=== PATIENT | female | born 1960 | race Caucasian/White ===

== ENCOUNTER 2021-09-12 10:09 | Inpatient (IN) | payer BC ==
[~2021-09-12] VITALS: Ht 157.5 cm; Wt 114.5 kg
--- NOTE | 2021-09-12 10:45 | ED.ADGEN ---
Past Medical History Past Medical History: Cancer General Adult HPI: HPI: Patient is a 61-year-old female who arrives with her son to the emergency department after an abrupt change in her mental status. The patient's son reports he contacted her earlier this morning and the patient was reportedly slurring her speech. The patient was recently diagnosed with metastatic breast cancer which is most recently been found in her liver. The patient does take morphine for her pain however her last dose was late yesterday evening. Patient also reports to epigastric pain as well as nausea with 2 episodes of vomiting. Patient reports that she feels intoxicated however she has not had anything to drink. She states she feels somewhat lightheaded. Furthermore she states she can move all of her extremities and does not suffer from any motor or sensory deficits. Furthermore she is not slurring her speech at this time. She is awake, alert and neurologically intact. Review of Systems: Review of Systems: Constitutional: Reports fatigue. Denies fever or chills. [] Eyes: Denies change in visual acuity. [] HENT: Denies nasal congestion or sore throat. [] Respiratory: Reports shortness of air. Denies cough or shortness of breath. [] Cardiovascular: Denies chest pain or edema. [] GI: Reports abdominal pain with nausea and vomiting. Bloody stools or diarrhea. [] : Denies dysuria. [] Musculoskeletal: Denies back pain or joint pain. [] Integument: Denies rash. [] Neurologic: Reports slurred speech and change in mental status. Denies headache, focal weakness or sensory changes. [] Endocrine: Denies polyuria or polydipsia. [] Lymphatic: Denies swollen glands. [] Psychiatric: Denies depression or anxiety. [] Current Medications: Current Medications Medications (Trade) Dose Ordered Sig/Kassidy Start Time Stop Time Status Last Admin Dose Admin Fentanyl Citrate (Fentanyl 2ml Vial) 25 mcg PRN Q3HRS PRN 09/12/21 13:30 UNV Lactulose (Lactulose) 20 gm BID 09/12/21 13:30 UNV Morphine Sulfate (Morphine Sulfate) 4 mg PRN Q2HR PRN 09/12/21 13:15 09/12/21 13:19 DC Ondansetron HCl (Zofran) 4 mg PRN Q4HRS PRN 09/12/21 13:30 UNV Allergies: Allergies: Allergies Coded Allergies Type Severity Reaction Last Updated Verified Penicillins Allergy Intermediate 09/12/21 Yes Physical Exam: PE: Constitutional: Fatigued. Well developed, well nourished, no acute distress, non-toxic appearance. [] HENT: Normocephalic, atraumatic, bilateral external ears normal, oropharynx moist, no oral exudates, nose normal. [] Eyes: PERRLA, EOMI, conjunctiva normal, no discharge. [] Neck: Normal range of motion, no tenderness, supple, no stridor. [] Cardiovascular:Heart rate regular rhythm, no murmur [] Lungs & Thorax: Bilateral breath sounds clear to auscultation [] Abdomen: Bowel sounds normal, soft, no tenderness, no masses, no pulsatile ma sses. [] Skin: Warm, dry, no erythema, no rash. [] Back: No tenderness, no CVA tenderness. [] Extremities: No tenderness, no cyanosis, no clubbing, ROM intact, no edema. [] Neurologic: Alert and oriented X 3, normal motor function, normal sensory function, no focal deficits noted. [] Psychologic: Affect normal, judgement normal, mood normal. [] Current Patient Data: Labs: Laboratory Tests Test 09/12/21 12:02 White Blood Count 10.1 x10^3/uL (4.0-11.0) Red Blood Count 5.53 x10^6/uL (3.50-5.40) H Hemoglobin 17.3 g/dL (12.0-15.5) H Hematocrit 52.0 % (36.0-47.0) H Mean Corpuscular Volume 94 fL (79-100) Mean Corpuscular Hemoglobin 31 pg (25-35) Mean Corpuscular Hemoglobin Concent 33 g/dL (31-37) Red Cell Distribution Width 16.6 % (11.5-14.5) H Platelet Count 233 x10^3/uL (140-400) Neutrophils (%) (Auto) 81 % (31-73) H Lymphocytes (%) (Auto) 9 % (24-48) L Monocytes (%) (Auto) 8 % (0-9) Eosinophils (%) (Auto) 1 % (0-3) Basophils (%) (Auto) 1 % (0-3) Neutrophils # (Auto) 8.2 x10^3/uL (1.8-7.7) H Lymphocytes # (Auto) 1.0 x10^3/uL (1.0-4.8) Monocytes # (Auto) 0.8 x10^3/uL (0.0-1.1) Eosinophils # (Auto) 0.1 x10^3/uL (0.0-0.7) Basophils # (Auto) 0.1 x10^3/uL (0.0-0.2) Segmented Neutrophils % 81 % (35-66) H Band Neutrophils % 6 % (0-9) Lymphocytes % 7 % (24-48) L Monocytes % 6 % (0-10) Nucleated Red Blood Cells 1 Toxic Vacuolation Slight Platelet Estimate Adequate (ADEQUATE) Large Platelets Occ Giant Platelets Occ Prothrombin Time 15.6 SEC (11.7-14.0) H Prothrombin Time INR 1.3 (0.8-1.1) H Activated Partial Thromboplast Time 42 SEC (24-38) H Sodium Level 136 mmol/L (136-145) Potassium Level 3.8 mmol/L (3.5-5.1) Chloride Level 95 mmol/L (98-107) L Carbon Dioxide Level 24 mmol/L (21-32) Anion Gap 17 (6-14) H Blood Urea Nitrogen 39 mg/dL (7-20) H Creatinine 1.6 mg/dL (0.6-1.0) H Estimated GFR (Cockcroft-Gault) 32.8 BUN/Creatinine Ratio 24 (6-20) H Glucose Level 83 mg/dL (70-99) Calcium Level 10.8 mg/dL (8.5-10.1) H Total Bilirubin 14.4 mg/dL (0.2-1.0) H Aspartate Amino Transferase (AST) 2054 U/L (15-37) H Alanine Aminotransferase (ALT) 657 U/L (14-59) H Alkaline Phosphatase 1703 U/L (46-116) H Ammonia 76 mcmol/L (11-34) H Troponin I High Sensitivity 16 ng/L (4-50) Total Protein 5.9 g/dL (6.4-8.2) L Albumin 2.7 g/dL (3.4-5.0) L Albumin/Globulin Ratio 0.8 (1.0-1.7) L Laboratory Tests 09/12/21 12:02 Laboratory Tests 09/12/21 12:02 Vital Signs: Vital Signs Date Time Temp Pulse Resp B/P (MAP) Pulse Ox O2 Delivery O2 Flow Rate FiO2 09/12/21 12:12 18 92 09/12/21 10:16 96.2 63 134/89 (104) 96.2 EKG: EKG: EKG was obtained at 10:55 AM and revealed a normal sinus rhythm with a ventricular rate of 60 bpm. There is left axis deviation present. There are no acute ST/T wave changes to denote ischemia. There is no STEMI present. Heart Score: C/O Chest Pain: No HEART Score for Chest Pain: HEART Score for Chest Pain Response (Comments) Value History Slighlty/Non-Suspicious 0 Age >45 - < 65 1 Risk Factors 1 or 2 Risk Factors 1 Troponin < Normal Limit 0 Total 2 Risk Factors: Risk Factors: DM, Current or recent (<one month) smoker, HTN, HLP, family history of CAD, obesity. Risk Scores: Score 0 - 3: 2.5% MACE over next 6 weeks - Discharge Home Score 4 - 6: 20.3% MACE over next 6 weeks - Admit for Clinical Observation Score 7 - 10: 72.7% MACE over next 6 weeks - Early Invasive Strategies Radiology/Procedures: Radiology/Procedures: [[facility] [address] [place] [address] IMAGING REPORT Signed PATIENT: JOSE GUADALUPE BONILLA ACCOUNT: [id number] : 1960 LOCATION: ER AGE: 61 SEX: F EXAM STATUS: PRE ER ORD. PHYSICIAN: MARLA HOBBS DO REASON: Shortness of air PROCEDURE: PORTABLE CHEST 1V XR CHEST 1V History: Reason: Shortness of air / Spl. Instructions: / History: Comparison: None. Findings: Mild bibasilar linear atelectasis. No consolidation or pleural effusion. Normal heart size. No pneumothorax. Calcified right midlung pulmonary nodule, likely prior granulomatous disease. Postop changes bilateral axilla and cervical spine. Impression: 1. Mild bibasilar linear atelectasis. Electronically signed by: Scar Weller DO (09/12/2021 11:03 AM) [id number] DICTATED and SIGNED BY: SCAR WELLER DO DATE: 09/12/21 1102 [facility] [address] [place] [address] IMAGING REPORT Signed PATIENT: JOSE GUADALUPE BONILLA ACCOUNT: [id number] : 1960 LOCATION: ER AGE: 61 SEX: F EXAM STATUS: PRE ER ORD. PHYSICIAN: MARLA HOBBS DO REASON: Altered mental status, slurred speech PROCEDURE: CT HEAD WO CONTRAST CT HEAD/BRAIN WO History: Reason: Altered mental status, slurred speech / Spl. Instructions: / History: Comparison: None. Technique: Noncontrast CT imaging was performed of the head. Exposure: One or more of the following individualized dose reduction techniques were utilized for this examination: 1. Automated exposure control 2. Adjustment of the mA and/or kV according to patient size 3. Use of iterative reconstruction technique. Findings: No intracranial hemorrhage. No mass effect. No hydrocephalus. Mild foci of decreased attenuation within the hemispheric white matter, most o ften due to chronic microvascular ischemia. Imaged orbits are unremarkable. Imaged paranasal sinuses and mastoid air cells are clear. No acute calvarial fracture. Impression: 1. No acute intracranial abnormality. Electronically signed by: Scar Weller DO (09/12/2021 11:47 AM) [id number] DICTATED and SIGNED BY: SCAR WELLER DO DATE: 09/12/21 1133 ] Course & Med Decision Making: Course & Med Decision Making Pertinent Labs and Imaging studies reviewed. (See chart for details) [] Dragon Disclaimer: Dragon Disclaimer: This electronic medical record was generated, in whole or in part, using a voice recognition dictation system. Departure Departure Impression: Primary Impression: Hepatic encephalopathy Additional Impressions: Transaminitis Polycythemia Renal insufficiency Breast cancer Disposition: ADMITTED INPATIENT Admitting Physician: EFREN Condition: STABLE Problem Qualifiers MARLA HOBBS DO September 12, 2021 10:45
--- NOTE | 2021-09-12 11:06 | RAD ---
XR CHEST 1V History: Reason: Shortness of air / Spl. Instructions: / History: Comparison: None. Findings: Mild bibasilar linear atelectasis. No consolidation or pleural effusion. Normal heart size. No pneumo thorax. Calcified right midlung pulmonary nodule, likely prior granulomatous disease. Postop changes bilateral axilla and cervical spine. Impression: 1. Mild bibasilar linear atelectasis. Electronically signed by: Scar Riggs DO (09/12/2021 11:03 AM) [id number]
[2021-09-12] MEDS ORDERED: ONDANSETRON PF 4 MG/2 ML VIAL. IVP ONE (11:15)
[2021-09-12] MEDS ORDERED: MORPHINE SULFATE 4 MG/ML INJ. IVP ONE (11:15)
--- NOTE | 2021-09-12 11:49 | RAD ---
CT HEAD/BRAIN WO History: Reason: Altered mental status, slurred speech / Spl. Instructions: / History: Comparison: None. Technique: Noncontrast CT imaging was performed of the head. Exposure: One or more of the following individualized dose reduction techniques were utilized for thi s examination: 1. Automated exposure control 2. Adjustment of the mA and/or kV according to patient size 3. Use of iterative reconstruction technique. Findings: No intracranial hemorrhage. No mass effect. No hydrocephalus. Mild foci of decreased attenuation within the hemispheric white matter, most often due to chronic afua rovascular ischemia. Imaged orbits are unremarkable. Imaged paranasal sinuses and mastoid air cells are clear. No acute ca lvarial fracture. Impression: 1. No acute intracranial abnormality. Electronically signed by: Scar Riggs DO (09/12/2021 11:47 AM) [id number]
[2021-09-12 12:16] LABS: BASO # 0.1 x10^3/uL (0.0-0.2); BASO % 1 % (0-3); EOS # 0.1 x10^3/uL (0.0-0.7); EOS % 1 % (0-3); HEMOGLOBIN 17.3 g/dL (12.0-15.5); LYMPH % 9 % (24-48); MEAN CORPUSCULAR HEMOGLOBIN 31 pg (25-35); MEAN CORPUSCULAR HGB CONC 33 g/dL (31-37); MEAN CORPUSCULAR VOLUME 94 fL (79-100); MONO # 0.8 x10^3/uL (0.0-1.1); MONO % 8 % (0-9); NEUT # 8.2 x10^3/uL (1.8-7.7); NEUT % 81 % (31-73); PLATELET COUNT 233 x10^3/uL (140-400); RED BLOOD COUNT 5.53 x10^6/uL (3.50-5.40); RED CELL DISTRIBUTION WIDTH 16.6 % (11.5-14.5); WHITE BLOOD COUNT 10.1 x10^3/uL (4.0-11.0)
[2021-09-12 12:26] LABS: PROTHROMBIN TIME PATIENT 15.6 SEC (11.7-14.0)
[2021-09-12 12:29] LABS: CALCIUM 10.8 mg/dL (8.5-10.1); CREATININE 1.6 mg/dL (0.6-1.0); GFR 32.8; POTASSIUM 3.8 mmol/L (3.5-5.1)
[2021-09-12 12:43] LABS: ALBUMIN 2.7 g/dL (3.4-5.0); ALBUMIN/GLOBULIN RATIO 0.8 (1.0-1.7); TOTAL BILIRUBIN 14.4 mg/dL (0.2-1.0); TOTAL PROTEIN 5.9 g/dL (6.4-8.2)
[2021-09-12 12:59] LABS: % BANDS 6 % (0-9); % LYMPHS 7 % (24-48); % MONOS 6 % (0-10); % SEGS 81 % (35-66); NUCLEATED RBC 1; PLT ESTIMATE ADEQUATE (ADEQUATE)
[2021-09-12 13:00] LABS: TOXIC VACUOLATION SLIGHT
[2021-09-12] MEDS ORDERED: LACTULOSE 20 GM/30 ML SOLUTION. PO PRN (13:15)
[2021-09-12] MEDS ORDERED: ONDANSETRON PF 4 MG/2 ML VIAL. IVP PRN (13:15)
[2021-09-12] MEDS ORDERED: MORPHINE SULFATE 4 MG/ML INJ. IVP PRN (13:15)
[2021-09-12 13:21] LABS: BACTERIA,URINE MODERATE /HPF (0-FEW); HYALINE CASTS, URINE FEW /HPF; WBC,URINE 20-40 /HPF (0-4)
[2021-09-12 13:22] LABS: AMORPHOUS SEDIMENT,UR PRESENT /HPF
--- NOTE | 2021-09-12 13:22 | PDOC1 ---
History and Physical Date of Admission Date of Admission DATE: 09/12/21 TIME: 13:21 Identification/Chief Complaint Chief Complaint Confusion Source Source: Caregiver, Chart review, Patient History of Present Illness History of Present Illness Ms Marcelino is a 61 yo female w/ PMhx GERD, breast cancer x2 who comes to ED accompanied by her son, Jose D, c/o worsening confusion and abdominal pain at home. She has had nausea, confusion, 10/10 abdominal pain that is diffuse. She was recently admitted admitted for 4 days at [facility] for worsening fatigue and abdominal pain, discharged on 09/03/2021 and during that hospital stay son notes she had liver biopsy was positive for metastatic breast cancer. She was discharged home with morphine and sucralfate and Colace and given referral to Dr. Hdz and Dr. Hdz for primary care. Has yet to establish with either. She has moved to [place] and still sees her PCP in [place] until recently. Her son notes left sided breast cancer back in 2011 s/p lumpectomy and radiation with right breast cancer at the end of 2019 s/p mastectomy, radiation, and 12 rounds of chemo therapy, HER2 positive per son, was on herceptin for 12 months per son through [facility], has been off any treatment for 8 months and had fol low up 1 month ago per son with Dr. Geronimo, her primary Oncologist. Labs with WBC 10.1, Hb 17.3, platelets 233, NA 136, K3.8, BUN 39, CR 1.6, glucose 83, calcium 10.8, bilirubin 14.4, AST 2054, ALT 657, alkaline phosphatase 1703, ammonia 76, high-sensitivity troponin is 16, having an 2.7, INR 1.3, PTT 42. CT head and chest radiograph with no acute findings. Past Medical History Cardiovascular: HTN Heme/Onc: Cancer (Breast) Past Surgical History Past Surgical History cholecystectomy, liver biopsy, partial hysterectomy, cervical fusion Past Surgical History: Cholecystectomy, Hysterectomy Family History Family History Reviewed Family History: No Significant Social History Smoke: No ALCOHOL: rare Drugs: None Current Problem List Problem List Problems Medical Problems: (1) Breast cancer Status: Acute (2) Hepatic encephalopathy Status: Acute (3) Polycythemia Status: Acute (4) Renal insufficiency Status: Acute (5) Transaminitis Status: Acute Current Medications Current Medications Current Medications Ondansetron HCl (Zofran) 4 mg 1X ONCE IVP Last administered on 09/12/21at 12:10; Start 09/12/21 at 11:15; Stop 09/12/21 at 11:16; Status DC Morphine Sulfate (Morphine Sulfate) 4 mg 1X ONCE IVP Last administered on 09/12/21at 12:12; Start 09/12/21 at 11:15; Stop 09/12/21 at 11:16; Status DC Ondansetron HCl (Zofran) 4 mg PRN Q8HRS PRN IVP NAUSEA/VOMITING; Start 09/12/21 at 13:15; Stop 09/12/21 at 13:19; Status DC Morphine Sulfate (Morphine Sulfate) 4 mg PRN Q2HR PRN IVP PAIN; Start 09/12/21 at 13:15; Stop 09/12/21 at 13:19; Status DC Lactulose (Lactulose) 20 gm PRN DAILY PRN PO CONSTIPATION; Start 09/12/21 at 13:15; Stop 09/12/21 at 13:19; Status DC Lactulose (Lactulose) 20 gm BID PO ; Start 09/12/21 at 13:30; Status UNV Ondansetron HCl (Zofran) 4 mg PRN Q4HRS PRN IVP NAUSEA/VOMITING; Start 09/12/21 at 13:30; Status UNV Fentanyl Citrate (Fentanyl 2ml Vial) 25 mcg PRN Q3HRS PRN IVP SEVERE PAIN 7-10; Start 09/12/21 at 13:30; Status UNV Allergies Allergies: Coded Allergies: Penicillins (Verified Allergy, Intermediate, 09/12/21) ROS General: YES: Fatigue, Malaise; No: Chills, Night Sweats, Appetite, Other PSYCHOLOGICAL ROS: YES: Behavioral Disorder, Concentration difficultie, Disorientation, Hallucinations, Memory difficulties, Mood Swings; No: Anxiety, Decreased libido, Depression, Hostility, Irritablity, Obsessive thoughts, Physical abuse, Sexual abuse, Sleep disturbances, Suicidal ideation, Other Eyes: No Blurry vision, No Decreased vision, No Double vision, No Dry eyes, No Excessive tearing, No Eye Pain, No Itchy Eyes, No Loss of vision, No Photophobia, No Scotomata, No Uses contacts, No Uses glasses, No Other HEENT: No: Heacaches, Visual Changes, Hearing change, Nasal congestion, Nasal discharge, Oral lesions, Sinus pain, Sore Throat, Epistaxis, Sneezing, Snoring, Tinnitus, Vertigo, Vocal changes, Other ALLERGY AND IMMUNOLOGY: No: Hives, Insect Bite Sensitivity, Itchy/Watery Eyes, Nasal Congestion, Post Nasal Drip, Seasonal Allergies, Other Hematological and Lymphatic: No: Bleeding Problems, Blood Clots, Blood Transfusions, Brusing, Night Sweats, Pallor, Swollen Lymph Nodes, Other ENDOCRINE: No: Breast Changes, Galactorrhea, Hair Pattern Changes, Hot Flashes, Malaise/lethargy, Mood Swings, Palpitations, Polydipsia/polyuria, Skin Changes, Temperature Intolerance, Unexpected Weight Changes, Other Breast: No New/Changing Breast Lumps, No Nipple changes, No Nipple discharge, No Other Respiratory: No: Cough, Hemoptysis, Orthopnea, Pleuritic Pain, Shortness of breath, SOB with excertion, Sputum Changes, Stridor, Tachypnea, Wheezing, Other Cardiovascular: No Chest Pain, No Palpitations, No Orthopnea, No Paroxysmal Noc. Dyspnea, No Edema, No Lt Headedness, No Other Gastrointestinal: Yes Nausea, Yes Abdominal Pain; No Vomiting, No Diarrhea, No Constipation, No Melena, No Hematochezia, No Other Genitourinary: No Dysuria, No Frequency, No Incontinence, No Hematuria, No Retention, No Discharge, No Urgency, No Pain, No Flank Pain, No Other, No , No , No , No , No , No , No Musculoskeletal: Yes Gait Disturbance, Yes Muscular Weakness; No Joint Pain, No Joint Stiffness, No Joint Swelling, No Muscle Pain, No Pain In:, No Swelling In:, No Other Neurological: No Behavorial Changes, No Bowel/Bladder ControlChng, No Confusion, No Dizziness, No Gait Disturbance, No Headaches, No Impaired Coord/balance, No Memory Loss, No Numbness/Tingling, No Seizures, No Speech Problems, No Tremors, No Visual Changes, No Weakness, No Other Skin: No Dry Skin, No Eczema, No Hair Changes, No Lumps, No Mole Changes, No Mottling, No Nail Changes, No Pruritus, No Rash, No Skin Lesion Changes, No Other, No Acne Physical Exam General: Alert, Cooperative, moderate distress HEENT: Atraumatic, PERRLA, EOMI, Mucous membr. moist/pink Lungs: Clear to auscultation, Normal air movement Heart: S1S2, RRR, no thrills, no rubs, no gallops, no murmurs Abdomen: Normal bowel sounds, Other (RUQ pain) Rectal Exam: not examined Extremities: No clubbing, No cyanosis, No edema, Normal pulses, No tenderness/swelling Skin: No rashes, No breakdown, No significant lesion Neuro: Normal tone, Sensation intact, Cranial nerves 3-12 NL, Reflexes 2+, Other (Flapping tremor) Psych/Mental Status: Other (Confused) Vitals Vitals Vital Signs Date Time Temp Pulse Resp B/P (MAP) Pulse Ox O2 Delivery O2 Flow Rate FiO2 09/12/21 12:12 18 92 09/12/21 10:16 96.2 63 134/89 (104) 96.2 Labs Labs Laboratory Tests Test 09/12/21 12:02 White Blood Count 10.1 x10^3/uL (4.0-11.0) Red Blood Count 5.53 x10^6/uL (3.50-5.40) Hemoglobin 17.3 g/dL (12.0-15.5) Hematocrit 52.0 % (36.0-47.0) Mean Corpuscular Volume 94 fL (79-100) Mean Corpuscular Hemoglobin 31 pg (25-35) Mean Corpuscular Hemoglobin Concent 33 g/dL (31-37) Red Cell Distribution Width 16.6 % (11.5-14.5) Platelet Count 233 x10^3/uL (140-400) Neutrophils (%) (Auto) 81 % (31-73) Lymphocytes (%) (Auto) 9 % (24-48) Monocytes (%) (Auto) 8 % (0-9) Eosinophils (%) (Auto) 1 % (0-3) Basophils (%) (Auto) 1 % (0-3) Neutrophils # (Auto) 8.2 x10^3/uL (1.8-7.7) Lymphocytes # (Auto) 1.0 x10^3/uL (1.0-4.8) Monocytes # (Auto) 0.8 x10^3/uL (0.0-1.1) Eosinophils # (Auto) 0.1 x10^3/uL (0.0-0.7) Basophils # (Auto) 0.1 x10^3/uL (0.0-0.2) Segmented Neutrophils % 81 % (35-66) Band Neutrophils % 6 % (0-9) Lymphocytes % 7 % (24-48) Monocytes % 6 % (0-10) Nucleated Red Blood Cells 1 Toxic Vacuolation Slight Platelet Estimate Adequate (ADEQUATE) Large Platelets Occ Giant Platelets Occ Prothrombin Time 15.6 SEC (11.7-14.0) Prothromb Time International Ratio 1.3 (0.8-1.1) Activated Partial Thromboplast Time 42 SEC (24-38) Sodium Level 136 mmol/L (136-145) Potassium Level 3.8 mmol/L (3.5-5.1) Chloride Level 95 mmol/L (98-107) Carbon Dioxide Level 24 mmol/L (21-32) Anion Gap 17 (6-14) Blood Urea Nitrogen 39 mg/dL (7-20) Creatinine 1.6 mg/dL (0.6-1.0) Estimated GFR (Cockcroft-Gault) 32.8 BUN/Creatinine Ratio 24 (6-20) Glucose Level 83 mg/dL (70-99) Calcium Level 10.8 mg/dL (8.5-10.1) Total Bilirubin 14.4 mg/dL (0.2-1.0) Aspartate Amino Transf (AST/SGOT) 2054 U/L (15-37) Alanine Aminotransferase (ALT/SGPT) 657 U/L (14-59) Alkaline Phosphatase 1703 U/L (46-116) Ammonia 76 mcmol/L (11-34) Troponin I High Sensitivity 16 ng/L (4-50) Total Protein 5.9 g/dL (6.4-8.2) Albumin 2.7 g/dL (3.4-5.0) Albumin/Globulin Ratio 0.8 (1.0-1.7) Laboratory Tests Test 09/12/21 12:02 White Blood Count 10.1 x10^3/uL (4.0-11.0) Red Blood Count 5.53 x10^6/uL (3.50-5.40) Hemoglobin 17.3 g/dL (12.0-15.5) Hematocrit 52.0 % (36.0-47.0) Mean Corpuscular Volume 94 fL (79-100) Mean Corpuscular Hemoglobin 31 pg (25-35) Mean Corpuscular Hemoglobin Concent 33 g/dL (31-37) Red Cell Distribution Width 16.6 % (11.5-14.5) Platelet Count 233 x10^3/uL (140-400) Neutrophils (%) (Auto) 81 % (31-73) Lymphocytes (%) (Auto) 9 % (24-48) Monocytes (%) (Auto) 8 % (0-9) Eosinophils (%) (Auto) 1 % (0-3) Basophils (%) (Auto) 1 % (0-3) Neutrophils # (Auto) 8.2 x10^3/uL (1.8-7.7) Lymphocytes # (Auto) 1.0 x10^3/uL (1.0-4.8) Monocytes # (Auto) 0.8 x10^3/uL (0.0-1.1) Eosinophils # (Auto) 0.1 x10^3/uL (0.0-0.7) Basophils # (Auto) 0.1 x10^3/uL (0.0-0.2) Segmented Neutrophils % 81 % (35-66) Band Neutrophils % 6 % (0-9) Lymphocytes % 7 % (24-48) Monocytes % 6 % (0-10) Nucleated Red Blood Cells 1 Toxic Vacuolation Slight Platelet Estimate Adequate (ADEQUATE) Large Platelets Occ Giant Platelets Occ Prothrombin Time 15.6 SEC (11.7-14.0) Prothromb Time International Ratio 1.3 (0.8-1.1) Activated Partial Thromboplast Time 42 SEC (24-38) Sodium Level 136 mmol/L (136-145) Potassium Level 3.8 mmol/L (3.5-5.1) Chloride Level 95 mmol/L (98-107) Carbon Dioxide Level 24 mmol/L (21-32) Anion Gap 17 (6-14) Blood Urea Nitrogen 39 mg/dL (7-20) Creatinine 1.6 mg/dL (0.6-1.0) Estimated GFR (Cockcroft-Gault) 32.8 BUN/Creatinine Ratio 24 (6-20) Glucose Level 83 mg/dL (70-99) Calcium Level 10.8 mg/dL (8.5-10.1) Total Bilirubin 14.4 mg/dL (0.2-1.0) Aspartate Amino Transf (AST/SGOT) 2054 U/L (15-37) Alanine Aminotransferase (ALT/SGPT) 657 U/L (14-59) Alkaline Phosphatase 1703 U/L (46-116) Ammonia 76 mcmol/L (11-34) Troponin I High Sensitivity 16 ng/L (4-50) Total Protein 5.9 g/dL (6.4-8.2) Albumin 2.7 g/dL (3.4-5.0) Albumin/Globulin Ratio 0.8 (1.0-1.7) Images Images CT HEAD WO CONTRAST CT HEAD/BRAIN WO History: Reason: Altered mental status, slurred speech / Spl. Instructions: / History: Comparison: None. Technique: Noncontrast CT imaging was performed of the head. Exposure: One or more of the following individualized dose reduction techniques were utilized for this examination: 1. Automated exposure control 2. Adjustment of the mA and/or kV according to patient size 3. Use of iterative reconstruction technique. Findings: No intracranial hemorrhage. No mass effect. No hydrocephalus. Mild foci of decreased attenuation within the hemispheric white matter, most often due to chronic microvascular ischemia. Imaged orbits are unremarkable. Imaged paranasal sinuses and mastoid air cells are clear. No acute calvarial fracture. Impression: 1. No acute intracranial abnormality. PORTABLE CHEST 1V XR CHEST 1V History: Reason: Shortness of air / Spl. Instructions: / History: Comparison: None. Findings: Mild bibasilar linear atelectasis. No consolidation or pleural effusion. Normal heart size. No pneumothorax. Calcified right midlung pulmonary nodule, likely prior granulomatous disease. Postop changes bilateral axilla and cervical spine. Impression: 1. Mild bibasilar linear atelectasis. VTE Prophylaxis Ordered VTE Prophylaxis Devices: No VTE Pharmacological Prophylaxi: Yes Assessment/Plan Assessment/Plan Acute encephalopathy - likely hepatic, though possibility of brain mets with breast ca is possible. Lactulose if she can tolerate Jaundice - with hyperbilirubinemia - will consult GI for further recommendations Acute transaminitis - likely infiltrative with metastatic diagnosis Hyperammonemia - will treat with lactulose as above Intractable abdominal pain - fentanyl prn, po dilaudid Nausea and vomiting - zofran prn H/o breast cancer, recent workup/diagnosis of metastatic disease to liver - request records from [place] GERD - PPI FEN - ADAT PPX - heparin FULL CODE Dispo - inpatient Surrogate decision maker is Jose D gomes, overall poor prognosis shared bedside Justifications for Admission Other Justification DEVIN ROBLES MD September 12, 2021 13:22
[2021-09-12] MEDS ORDERED: IV NORMAL SALINE 1000ML BAG 1,000 ML IV ONE (13:30)
[2021-09-12] MEDS: LACTULOSE 20 GM/30 ML SOLUTION. PO SCH ×2 (13:37→21:00)
--- NOTE | 2021-09-12 15:17 | PDOC2 ---
GI CONSULT Date of Service: DATE: 09/12/21 TIME: 14:54 Reason For Consult: hepatic encephalopathy? metastatic breast cancer HPI: HPI: 61 y/o female seen in ER w/ supportive son Jose D. Not feeling well recently, some stomach upset, saw PCP and had labs, soon after advised to go to the hospital. Admitted for 4 days at [facility]. Son reports CT, US, MRI, and liver biopsy done and she was told diagnosis of metastatic breast cancer/liver cancer. She used to live in [facility] but now lives in [place]; they plan to establish care w/ Dr. Hdz ("he's familiar with her case") and Dr. Manning (has appt next week but would like to see him sooner - says his family members have seen him). New prescriptions include sucralfate, morphine, and docusate. To ER today w/ altered mental status. H/o breast cancer in 2011 s/p lumpectomy and radiation - treatment through [facility]. Recurrence (other breast) in 2020 s/p lumpectomy, radiation x 4, chemo x 14 (names Herceptin) - treatment through [facility], finished 8 months ago. GI-sarah, no h/o liver disease. H/o GERD previously on OTC Prilosec but now takes Rx medication? New dysphagia w/ solids and liquids (not every time but most times) - gets caught at suprasternal notch - sometimes has to cough out, sometimes will pass w/ more liquid. Ongoing nausea for awhile, some vomiting, avoidance of eating. Epigastric pain radiating to RUQ and around to back - fairly constant but worse after eating. Historically has frequent loose stools, but now stooling once every three days. Miralax caused diarrhea. Recent 10 pound weight loss. No hematemesis, hematochezia, or melena. She reports past EGD "before my son was conceived" that showed peptic ulcer. Also reports normal colonoscopy either in 2019 or 2020 in [facility] area. S/p cholecystectomy (says no stones). No pancreas history. No NSAIDs. Limiting morphine at home (takes for abd and back pain) due to fear of addiction. Records from our office: Long h/o GERD w/ symptom recurrence off PPI. EGD by Dr. Pevely showed Grade I distal esophagitis, 3cm hiatal hernia, normal stomach (random biopsy negative for H. pylori), normal duodenum. PMH: PMH: HTN, DM (says off meds) cholecystectomy, liver biopsy, partial hysterectomy, cervical fusion FH: Family History: No pertinent hx Social History: Smoke: No ALCOHOL: occassional (wine) Drugs: None ROS: GEN: Denies fevers, chills, sweats HEENT: Denies blurred vision, sore throat CV: Denies chest pain RESP: Denies shortness of air, cough GI: Per HPI : +urinating less frequently ENDO: +weight loss NEURO: +confusion MSK: Denies weakness, joint pain/swelling SKIN: +jaundice Vitals: Vitals: Vital Signs Date Time Temp Pulse Resp B/P (MAP) Pulse Ox O2 Delivery O2 Flow Rate FiO2 09/12/21 12:12 18 92 09/12/21 10:16 96.2 63 134/89 (104) 96.2 Labs: Labs: Laboratory Tests Test 09/12/21 12:02 09/12/21 12:40 White Blood Count 10.1 x10^3/uL (4.0-11.0) Red Blood Count 5.53 x10^6/uL (3.50-5.40) Hemoglobin 17.3 g/dL (12.0-15.5) Hematocrit 52.0 % (36.0-47.0) Mean Corpuscular Volume 94 fL (79-100) Mean Corpuscular Hemoglobin 31 pg (25-35) Mean Corpuscular Hemoglobin Concent 33 g/dL (31-37) Red Cell Distribution Width 16.6 % (11.5-14.5) Platelet Count 233 x10^3/uL (140-400) Neutrophils (%) (Auto) 81 % (31-73) Lymphocytes (%) (Auto) 9 % (24-48) Monocytes (%) (Auto) 8 % (0-9) Eosinophils (%) (Auto) 1 % (0-3) Basophils (%) (Auto) 1 % (0-3) Neutrophils # (Auto) 8.2 x10^3/uL (1.8-7.7) Lymphocytes # (Auto) 1.0 x10^3/uL (1.0-4.8) Monocytes # (Auto) 0.8 x10^3/uL (0.0-1.1) Eosinophils # (Auto) 0.1 x10^3/uL (0.0-0.7) Basophils # (Auto) 0.1 x10^3/uL (0.0-0.2) Segmented Neutrophils % 81 % (35-66) Band Neutrophils % 6 % (0-9) Lymphocytes % 7 % (24-48) Monocytes % 6 % (0-10) Nucleated Red Blood Cells 1 Toxic Vacuolation Slight Platelet Estimate Adequate (ADEQUATE) Large Platelets Occ Giant Platelets Occ Prothrombin Time 15.6 SEC (11.7-14.0) Prothromb Time International Ratio 1.3 (0.8-1.1) Activated Partial Thromboplast Time 42 SEC (24-38) Sodium Level 136 mmol/L (136-145) Potassium Level 3.8 mmol/L (3.5-5.1) Chloride Level 95 mmol/L (98-107) Carbon Dioxide Level 24 mmol/L (21-32) Anion Gap 17 (6-14) Blood Urea Nitrogen 39 mg/dL (7-20) Creatinine 1.6 mg/dL (0.6-1.0) Estimated GFR (Cockcroft-Gault) 32.8 BUN/Creatinine Ratio 24 (6-20) Glucose Level 83 mg/dL (70-99) Calcium Level 10.8 mg/dL (8.5-10.1) Total Bilirubin 14.4 mg/dL (0.2-1.0) Aspartate Amino Transf (AST/SGOT) 2054 U/L (15-37) Alanine Aminotransferase (ALT/SGPT) 657 U/L (14-59) Alkaline Phosphatase 1703 U/L (46-116) Ammonia 76 mcmol/L (11-34) Troponin I High Sensitivity 16 ng/L (4-50) EW-Fci-J-Type Natriuretic Peptide 269 pg/mL (0-124) Total Protein 5.9 g/dL (6.4-8.2) Albumin 2.7 g/dL (3.4-5.0) Albumin/Globulin Ratio 0.8 (1.0-1.7) Urine Collection Type Unknown Urine Color (Auto) Dark yellow Urine Turbidity Hazy Urine pH (Auto) 5.5 (<5.0-8.0) Urine Specific [place] 1.025 (1.000-1.030) Urine Protein (Auto) 30 mg/dL (Negative) Urine Glucose (Auto)(UA) Negative mg/dL (Negative) Urine Ketones (Auto) Negative mg/dL (Negative) Urine Blood (Auto) Trace (Negative) Urine Nitrite Negative (Negative) Urine Bilirubin (Auto) Large (Negative) Urine Urobilinogen (Auto) 8 mg/dL (Normal) Urine Leukocyte Esterase (Auto) Large (Negative) Urine RBC 1-2 /HPF (0-2) Urine WBC 20-40 /HPF (0-4) Urine Squamous Epithelial Cells Mod /LPF Urine Amorphous Sediment Present /HPF Urine Bacteria Moderate /HPF (0-FEW) Urine Hyaline Casts Few /HPF Allergies: Coded Allergies: Penicillins (Verified Allergy, Intermediate, 09/12/21) Medications: Current Medications Medications (Trade) Dose Ordered Sig/Kassidy Route PRN Reason Start Time Stop Time Status Last Admin Dose Admin Ondansetron HCl (Zofran) 4 mg 1X ONCE IVP 09/12/21 11:15 09/12/21 11:16 DC 09/12/21 12:10 Morphine Sulfate (Morphine Sulfate) 4 mg 1X ONCE IVP 09/12/21 11:15 09/12/21 11:16 DC 09/12/21 12:12 Lactulose (Lactulose) 20 gm BID PO 09/12/21 13:30 09/12/21 13:37 Sodium Chloride 1,000 ml @ 1,000 mls/hr 1X ONCE IV 09/12/21 13:30 09/12/21 14:29 DC 09/12/21 13:37 Imaging: Imaging: CXR Impression: 1. Mild bibasilar linear atelectasis. Head CT Impression: 1. No acute intracranial abnormality. PE: GEN: looks ill HEENT: Atraumatic, PERRL LUNGS: CTAB HEART: RRR ABD: obese, soft, tender epigastrium toward RUQ/flank EXTREMITY: trace BLE edema SKIN: +jaundice NEURO/PSYCH: A & O 3 - intermittently some confusion with dates and fizzy on details A/P: A/P: AMS H/o breast cancer, recent workup/diagnosis of metastatic disease to liver Jaundice/elevated LFTs, hyperammonemia Upper abd/back pain, n/v, change in bowel habits GERD Dysphagia - new CRC screen - UTD (reportedly normal within 2 years in [facility]) S/p cholecystectomy -- Continue PPI (has regular diet ordered so try PO for now), start lactulose, await records (imaging, path) from [place], await oncology thoughts. Monitor dysphagia issue. ELLIS FISHER September 12, 2021 15:17
[2021-09-12 15:35] VITALS: BP 146/74
[2021-09-12] MEDS ORDERED: HYDROmorphone 2 MG TABLET PO PRN (16:15)
[2021-09-12] MEDS: PANTOPRAZOLE 40 MG TABLET.DR. PO SCH (17:40)
[2021-09-12 19:00] VITALS: BP 137/70
[2021-09-12] MEDS ORDERED: NAPR500T8 PO (22:17)
[2021-09-12] MEDS ORDERED: OMEP20CA16 PO (22:17)
[2021-09-12] MEDS ORDERED: HYDR50TA9 PO (22:17)
[2021-09-12] MEDS ORDERED: ZOLP5TAB PO (22:17)
[2021-09-12] MEDS ORDERED: CALC-71 PO (22:17)
[2021-09-12] MEDS ORDERED: GABA600T7 PO (22:17)
[2021-09-12] MEDS ORDERED: ATEN50TA PO (22:17)
[2021-09-12 23:00] VITALS: BP 154/78
[2021-09-13 03:00] VITALS: BP 126/74
[2021-09-13 07:00] VITALS: BP 118/70
[2021-09-13] MEDS: PANTOPRAZOLE 40 MG TABLET.DR. PO SCH (07:45)
--- NOTE | 2021-09-13 07:48 | EKG ---
[facility] [address] [place] [address] Test Date: 2021-09-12 Test Time: 10:55:06 Pat Name: JOSE GUADALUPE BONILLA Department: Room: [facility] Gender: F Director Of [employer]: : 1960 Requested By: MARLA HOBBS Order Number: [id number] Reading MD: Jerry Vines MD Measurements Intervals [place] Rate: 60 P: 24 CO: 158 QRS: -61 QRSD: 128 T: 5 QT: 494 QTc: 494 Interpretive Statements SINUS RHYTHM LAD POOR R WAVE PROGRESSION Electronically Signed On 09-13-2021 15:34:09 CDT by Jerry Vines MD
[2021-09-13 07:59] LABS: HEMOGLOBIN 16.7 g/dL (12.0-15.5); RED BLOOD COUNT 5.32 x10^6/uL (3.50-5.40); RED CELL DISTRIBUTION WIDTH 16.4 % (11.5-14.5); WHITE BLOOD COUNT 9.9 x10^3/uL (4.0-11.0)
[2021-09-13 08:39] LABS: ALBUMIN 2.4 g/dL (3.4-5.0); ALBUMIN/GLOBULIN RATIO 0.7 (1.0-1.7); CALCIUM 10.5 mg/dL (8.5-10.1); CREATININE 1.5 mg/dL (0.6-1.0); GFR 35.3; POTASSIUM 3.6 mmol/L (3.5-5.1); TOTAL BILIRUBIN 15.8 mg/dL (0.2-1.0); TOTAL PROTEIN 5.9 g/dL (6.4-8.2)
--- NOTE | 2021-09-13 09:08 | PDOC ---
[employer] PROGRESS NOTE Date of Service DOS: DATE: 09/13/21 TIME: 09:05 Chief Complaint Chief Complaint Acute encephalopathy - likely hepatic, though possibility of brain mets with breast ca is possible. Lactulose if she can tolerate Jaundice - with hyperbilirubinemia - will consult GI for further recommendations Acute transaminitis - likely infiltrative with metastatic diagnosis Hyperammonemia - will treat with lactulose as above Intractable abdominal pain - fentanyl prn, po dilaudid Nausea and vomiting - zofran prn H/o breast cancer, recent workup/diagnosis of metastatic disease to liver - request records from [place] GER[facility] - PPI History of Present Illness History of Present Illness 09/13: Patient reports some dysuria and shortness of breath this morning. Also notes word finding difficulty and difficulty with grasping objects. Urine cultures and sensitivities pending. Will add Rocephin. Follow Oncology and GI recommendations. Vitals/I&O Vitals/I&O: Vital Signs Date Time Temp Pulse Resp B/P (MAP) Pulse Ox O2 Delivery O2 Flow Rate FiO2 09/13/21 07:00 98.3 72 18 118/70 (86) 95 Nasal Cannula 3.0 98.3 I & O 09/12/21 09/12/21 09/13/21 15:00 23:00 07:00 Intake Total 1000 ml 200 ml Output Total 300 ml Balance 1000 ml -100 ml Physical Exam General: Alert, Cooperative, mild distress Heart: Regular rate Lungs: Other (Decreased breath sounds) Abdomen: Normal bowel sounds, Other (RUQ pain) Extremities: No clubbing, No cyanosis, No edema, Normal pulses, No tenderness/swelling Skin: Other (Jaundiced) Labs Labs: Laboratory Tests Test 09/12/21 12:02 09/12/21 12:40 09/13/21 06:45 White Blood Count 10.1 x10^3/uL (4.0-11.0) 9.9 x10^3/uL (4.0-11.0) Red Blood Count 5.53 x10^6/uL (3.50-5.40) 5.32 x10^6/uL (3.50-5.40) Hemoglobin 17.3 g/dL (12.0-15.5) 16.7 g/dL (12.0-15.5) Hematocrit 52.0 % (36.0-47.0) 50.0 % (36.0-47.0) Mean Corpuscular Volume 94 fL (79-100) 94 fL (79-100) Mean Corpuscular Hemoglobin 31 pg (25-35) 32 pg (25-35) Mean Corpuscular Hemoglobin Concent 33 g/dL (31-37) 34 g/dL (31-37) Red Cell Distribution Width 16.6 % (11.5-14.5) 16.4 % (11.5-14.5) Platelet Count 233 x10^3/uL (140-400) 210 x10^3/uL (140-400) Neutrophils (%) (Auto) 81 % (31-73) Lymphocytes (%) (Auto) 9 % (24-48) Monocytes (%) (Auto) 8 % (0-9) Eosinophils (%) (Auto) 1 % (0-3) Basophils (%) (Auto) 1 % (0-3) Neutrophils # (Auto) 8.2 x10^3/uL (1.8-7.7) Lymphocytes # (Auto) 1.0 x10^3/uL (1.0-4.8) Monocytes # (Auto) 0.8 x10^3/uL (0.0-1.1) Eosinophils # (Auto) 0.1 x10^3/uL (0.0-0.7) Basophils # (Auto) 0.1 x10^3/uL (0.0-0.2) Segmented Neutrophils % 81 % (35-66) Band Neutrophils % 6 % (0-9) Lymphocytes % 7 % (24-48) Monocytes % 6 % (0-10) Nucleated Red Blood Cells 1 Toxic Vacuolation Slight Platelet Estimate Adequate (ADEQUATE) Large Platelets Occ Giant Platelets Occ Prothrombin Time 15.6 SEC (11.7-14.0) Prothromb Time International Ratio 1.3 (0.8-1.1) Activated Partial Thromboplast Time 42 SEC (24-38) Sodium Level 136 mmol/L (136-145) Potassium Level 3.8 mmol/L (3.5-5.1) Chloride Level 95 mmol/L (98-107) Carbon Dioxide Level 24 mmol/L (21-32) Anion Gap 17 (6-14) Blood Urea Nitrogen 39 mg/dL (7-20) Creatinine 1.6 mg/dL (0.6-1.0) Estimated GFR (Cockcroft-Gault) 32.8 BUN/Creatinine Ratio 24 (6-20) Glucose Level 83 mg/dL (70-99) Calcium Level 10.8 mg/dL (8.5-10.1) Total Bilirubin 14.4 mg/dL (0.2-1.0) Aspartate Amino Transf (AST/SGOT) 2054 U/L (15-37) Alanine Aminotransferase (ALT/SGPT) 657 U/L (14-59) Alkaline Phosphatase 1703 U/L (46-116) Ammonia 76 mcmol/L (11-34) 90 mcmol/L (11-34) Troponin I High Sensitivity 16 ng/L (4-50) DJ-Lad-C-Type Natriuretic Peptide 269 pg/mL (0-124) Total Protein 5.9 g/dL (6.4-8.2) Albumin 2.7 g/dL (3.4-5.0) Albumin/Globulin Ratio 0.8 (1.0-1.7) Urine Collection Type Unknown Urine Color (Auto) Dark yellow Urine Turbidity Hazy Urine pH (Auto) 5.5 (<5.0-8.0) Urine Specific [place] 1.025 (1.000-1.030) Urine Protein (Auto) 30 mg/dL (Negative) Urine Glucose (Auto)(UA) Negative mg/dL (Negative) Urine Ketones (Auto) Negative mg/dL (Negative) Urine Blood (Auto) Trace (Negative) Urine Nitrite Negative (Negative) Urine Bilirubin (Auto) Large (Negative) Urine Urobilinogen (Auto) 8 mg/dL (Normal) Urine Leukocyte Esterase (Auto) Large (Negative) Urine RBC 1-2 /HPF (0-2) Urine WBC 20-40 /HPF (0-4) Urine Squamous Epithelial Cells Mod /LPF Urine Amorphous Sediment Present /HPF Urine Bacteria Moderate /HPF (0-FEW) Urine Hyaline Casts Few /HPF Assessment and Plan Assessmemt and Plan Problems Medical Problems: (1) Breast cancer Status: Acute (2) Hepatic encephalopathy Status: Acute (3) Polycythemia Status: Acute (4) Renal insufficiency Status: Acute (5) Transaminitis Status: Acute Comment Review of Relevant I have reviewed the following items davin (where applicable) has been applied. Medications: Current Medications Medications (Trade) Dose Ordered Sig/Kassidy Route PRN Reason Start Time Stop Time Status Last Admin Dose Admin Ondansetron HCl (Zofran) 4 mg 1X ONCE IVP 09/12/21 11:15 09/12/21 11:16 DC 09/12/21 12:10 Morphine Sulfate (Morphine Sulfate) 4 mg 1X ONCE IVP 09/12/21 11:15 09/12/21 11:16 DC 09/12/21 12:12 Lactulose (Lactulose) 20 gm BID PO 09/12/21 13:30 09/12/21 21:00 Sodium Chloride 1,000 ml @ 1,000 mls/hr 1X ONCE IV 09/12/21 13:30 09/12/21 14:29 DC 09/12/21 13:37 Pantoprazole Sodium (Protonix) 40 mg DAILYAC PO 09/12/21 16:00 09/13/21 07:45 Hydromorphone HCl (Dilaudid) 1 mg PRN Q4HRS PRN PO PAIN 09/12/21 16:15 09/13/21 05:00 Justifications for Admission Other Justification AMBER RÍOS MD September 13, 2021 09:08
[2021-09-13] MEDS: LACTULOSE 20 GM/30 ML SOLUTION. PO SCH ×2 (09:13→21:33)
[2021-09-13] MEDS: HYDROmorphone 2 MG TABLET PO PRN ×2 (09:13→21:33)
--- NOTE | 2021-09-13 09:50 | PDOC ---
Date of Service: DATE: 09/13/21 TIME: 09:44 Subjective: Subjective: Not feeling great today. Side pain, having trouble forming sentences, not hungry. Has stooled a lot. Feels short of breath. Getting pills down but "takes awhile." Objective: Objective: CT ordered. Vital Signs: Vital Signs Date Time Temp Pulse Resp B/P (MAP) Pulse Ox O2 Delivery O2 Flow Rate FiO2 09/13/21 09:13 Nasal Cannula 2.5 09/13/21 07:00 98.3 72 18 118/70 (86) 95 98.3 Labs: Laboratory Tests Test 09/12/21 12:02 09/12/21 12:40 09/13/21 06:45 White Blood Count 10.1 x10^3/uL 9.9 x10^3/uL Red Blood Count 5.53 x10^6/uL 5.32 x10^6/uL Hemoglobin 17.3 g/dL 16.7 g/dL Hematocrit 52.0 % 50.0 % Mean Corpuscular Volume 94 fL 94 fL Mean Corpuscular Hemoglobin 31 pg 32 pg Mean Corpuscular Hemoglobin Concent 33 g/dL 34 g/dL Red Cell Distribution Width 16.6 % 16.4 % Platelet Count 233 x10^3/uL 210 x10^3/uL Neutrophils (%) (Auto) 81 % Lymphocytes (%) (Auto) 9 % Monocytes (%) (Auto) 8 % Eosinophils (%) (Auto) 1 % Basophils (%) (Auto) 1 % Neutrophils # (Auto) 8.2 x10^3/uL Lymphocytes # (Auto) 1.0 x10^3/uL Monocytes # (Auto) 0.8 x10^3/uL Eosinophils # (Auto) 0.1 x10^3/uL Basophils # (Auto) 0.1 x10^3/uL Segmented Neutrophils % 81 % Band Neutrophils % 6 % Lymphocytes % 7 % Monocytes % 6 % Nucleated Red Blood Cells 1 Toxic Vacuolation Slight Platelet Estimate Adequate Large Platelets Occ Giant Platelets Occ Prothrombin Time 15.6 SEC Prothromb Time International Ratio 1.3 Activated Partial Thromboplast Time 42 SEC Sodium Level 136 mmol/L 136 mmol/L Potassium Level 3.8 mmol/L 3.6 mmol/L Chloride Level 95 mmol/L 96 mmol/L Carbon Dioxide Level 24 mmol/L 21 mmol/L Anion Gap 17 19 Blood Urea Nitrogen 39 mg/dL 42 mg/dL Creatinine 1.6 mg/dL 1.5 mg/dL Estimated GFR (Cockcroft-Gault) 32.8 35.3 BUN/Creatinine Ratio 24 28 Glucose Level 83 mg/dL 77 mg/dL Calcium Level 10.8 mg/dL 10.5 mg/dL Total Bilirubin 14.4 mg/dL 15.8 mg/dL Aspartate Amino Transf (AST/SGOT) 2054 U/L 2198 U/L Alanine Aminotransferase (ALT/SGPT) 657 U/L 652 U/L Alkaline Phosphatase 1703 U/L 1605 U/L Ammonia 76 mcmol/L 90 mcmol/L Troponin I High Sensitivity 16 ng/L XE-Utb-A-Type Natriuretic Peptide 269 pg/mL Total Protein 5.9 g/dL 5.9 g/dL Albumin 2.7 g/dL 2.4 g/dL Albumin/Globulin Ratio 0.8 0.7 Urine Collection Type Unknown Urine Color (Auto) Dark yellow Urine Turbidity Hazy Urine pH (Auto) 5.5 Urine Specific [place] 1.025 Urine Protein (Auto) 30 mg/dL Urine Glucose (Auto)(UA) Negative mg/dL Urine Ketones (Auto) Negative mg/dL Urine Blood (Auto) Trace Urine Nitrite Negative Urine Bilirubin (Auto) Large Urine Urobilinogen (Auto) 8 mg/dL Urine Leukocyte Esterase (Auto) Large Urine RBC 1-2 /HPF Urine WBC 20-40 /HPF Urine Squamous Epithelial Cells Mod /LPF Urine Amorphous Sediment Present /HPF Urine Bacteria Moderate /HPF Urine Hyaline Casts Few /HPF PE: GEN: NAD LUNGS: diminished NC 2.5L HEART: RRR ABD: obese, soft, vague discomfort to right/over ribs NEURO/PSYCH: A & O 3 - answers appropriately, somewhat slowly A/P: Metastatic breast cancer, elevated LFTs, hyperammonemia Upper abd/back pain, n/v, anorexia GERD, dysphagia -- Will check if any records received from [place] - nurse thinks fax may be coming through now. Await CT. Continue PPI, lactulose. Try Xifaxan. Justicifation of Admission Dx: Justifications for Admission: Justification of Admission Dx: Yes ELLIS FISHER September 13, 2021 09:50
--- NOTE | 2021-09-13 10:31 | NUR ---
SS following for discharge planning. SS reviewed pt chart and discussed with pt RN. Pt is from home and is currently requiring oxygen at two to three liters nasal canula. GI and Kerri consulted. Pt on IV Rocephin. SS will continue to follow for discharge planning.
[2021-09-13] MEDS: fentaNYL PF VIAL 100 MCG/2 ML VIAL IVP PRN (10:58)
[2021-09-13 11:00] VITALS: BP 130/78
[2021-09-13] MEDS: cefTRIAXone IV Push 1 GM VIAL. IVP SCH (11:10)
[2021-09-13] MEDS: rifAXIMin 550 MG TABLET PO SCH ×2 (11:10→21:33)
--- NOTE | 2021-09-13 14:50 | RAD ---
CT ABDOMEN+PELVIS WO History: Reason: Abnormal LFTs. metastatic breast cancer / Spl. Instructions: / History: Technique: Noncontrast examination of the abdomen and pelvis. Coronal and sagittal reconstructions we re performed. Exposure: One or more of the following individualized dose reduction techniques were utilized for thi s examination: 1. Automated exposure control 2. Adjustment of the mA and/or kV according to patient size 3. Use of iterative reconstruction technique. Comparison: None Findings: Lower chest: Mild scattered linear atelectasis. Nodular focus within the right breast measures 2.4 x 2.5 cm. Abdomen and pelvis: Mild nodular contour of the liver. Unremarkable noncontrast appearance of the spl een, adrenal glands, and pancreas. Pericholecystic. No biliary ductal dilatation. No renal calculus. No hydronephrosis. Decompressed urinary bladder. Normal appendix. No evidence of bowel obstruction. Small abdominal and pelvic ascites. No pathologic lymphadenopathy. Small fat-containing umbilical hernia measures 3.7 x 3.7 cm. Mild edematous plaque t hroughout the nonaneurysmal abdominal aorta and branch vessels. Prior hysterectomy. Bones: Multilevel lumbar stenosis most prominent L5-S1. Impression: 1. Hepatomegaly with nodular contour the liver, may indicate chronic liver disease. Recommend MRI wi th and without contrast to further assess for lesion. 2. Small abdominal and pelvic ascites. 3. Nodular focus within the right breast. Recommend correlation with prior breast imaging. Electronically signed by: Scar Riggs DO (09/13/2021 2:47 PM) [id number]
[2021-09-13 15:00] VITALS: BP 141/66
[2021-09-13 19:00] VITALS: BP 144/69
[2021-09-13] MEDS: ONDANSETRON PF 4 MG/2 ML VIAL. IVP PRN (21:32)
[2021-09-13 22:47] VITALS: BP 142/64
[2021-09-14] MEDS: fentaNYL PF VIAL 100 MCG/2 ML VIAL IVP PRN (00:46)
[2021-09-14 02:39] VITALS: BP 140/87
[2021-09-14] MEDS: PANTOPRAZOLE 40 MG TABLET.DR. PO SCH (06:26)
[2021-09-14 07:00] VITALS: BP 144/91
[2021-09-14] MEDS: LACTULOSE 20 GM/30 ML SOLUTION. PO SCH ×2 (08:54→20:43)
[2021-09-14] MEDS: rifAXIMin 550 MG TABLET PO SCH ×2 (08:54→20:43)
[2021-09-14] MEDS: cefTRIAXone IV Push 1 GM VIAL. IVP SCH (08:54)
[2021-09-14] MEDS: ONDANSETRON PF 4 MG/2 ML VIAL. IVP PRN (08:57)
[2021-09-14] MEDS: HYDROmorphone 2 MG TABLET PO PRN ×3 (08:57→19:23)
[2021-09-14 11:00] VITALS: BP 137/87
--- NOTE | 2021-09-14 11:31 | PDOC ---
[employer] PROGRESS NOTE Date of Service DOS: DATE: 09/14/21 TIME: 11:27 Chief Complaint Chief Complaint Acute encephalopathy - likely hepatic, though possibility of brain mets with breast ca is possible. Lactulose if she can tolerate Jaundice - with hyperbilirubinemia - will consult GI for further recommendations Acute transaminitis - likely infiltrative with metastatic diagnosis Hyperammonemia - will treat with lactulose as above Intractable abdominal pain - fentanyl prn, po dilaudid Nausea and vomiting - zofran prn H/o breast cancer, recent workup/diagnosis of metastatic disease to liver - request records from [place] G[facility] - PPI History of Present Illness History of Present Illness 09/13: Patient reports some dysuria and shortness of breath this morning. Also notes word finding difficulty and difficulty with grasping objects. Urine cultures and sensitivities pending. Will add Rocephin. Follow Oncology and GI recommendations. 09/14: Patient admits she still having some confusion today. Also complaining of some shortness of breath on 3 L oxygen. She admits some hot flashes. Consultation placed to oncology. She may be a good candidate for estrogen saloni like tamoxifen but I will defer to oncology in this regard. CT abdomen/pelvis yesterday showed hepatomegaly with nodular liver, and nodular focus within the right breast. Continue lactulose and rifaximin. Rocephin for UTI. Vitals/I&O Vitals/I&O: Vital Signs Date Time Temp Pulse Resp B/P (MAP) Pulse Ox O2 Delivery O2 Flow Rate FiO2 09/14/21 08:57 96 Nasal Cannula 3.0 09/14/21 07:00 97.9 93 18 144/91 (108) 97.9 I & O0 09/13/21 09/13/21 09/14/21 15:00 23:00 07:00 Output Total 800 ml 120 ml Balance -800 ml -120 ml Physical Exam General: Alert, Cooperative, mild distress Heart: Regular rate Lungs: Other (Decreased breath sounds) Abdomen: Normal bowel sounds, Other (RUQ pain) Extremities: No clubbing, No cyanosis, No edema, Normal pulses, No tenderness/swelling Skin: Other (Jaundiced) Assessment and Plan Assessmemt and Plan Problems Medical Problems: (1) Breast cancer Status: Acute (2) Hepatic encephalopathy Status: Acute (3) Polycythemia Status: Acute (4) Renal insufficiency Status: Acute (5) Transaminitis Status: Acute Comment Review of Relevant I have reviewed the following items davin (where applicable) has been applied. Justifications for Admission Other Justification AMBER RÍOS MD September 14, 2021 11:31
--- NOTE | 2021-09-14 13:47 | PDOC2 ---
CONSULT Date of Consult Date of Consult DATE: 09/14/21 TIME: 13:35 Reason for Consult Reason for Consult: Metastatic breast cancer Referring Physician Referring Physician: Dr. Sams Identification/Chief Complaint Chief Complaint Abdominal pain and weakness Source Source: Caregiver, Chart review, Patient History of Present Illness Reason for Visit: Sharlene Arce is a 61-year-old female who has been admitted to [facility] after presenting with abdominal pain and is receiving further evaluation and management. Sharlene has a diagnosis of right breast cancer. She states she [facility] She was diagnosed with right-sided ER positive, HER2 positive breast cancer. She reports receiving a lumpectomy followed by Taxol weekly with trastuzumab. She completed 1 year of Herceptin in late 2020. She states she was started on adjuvant endocrine therapy with letrozole and took it for 1 month before discontinuing it due to side effects. Her last office visit with her primary oncologist was 1 month ago. Subsequently, she was hospitalized at [facility] with abdominal pain/discomfort. Lab tests were obtained for further evaluation at the time showed normal CBC, chemistry showed abnormal LFTs with ALT 218, AST 342, alkaline phosphatase 439, bilirubin 1 on 08/31/2021. Ultrasound of the abdomen was obtained for further evaluation of abnormal LFTs and showed innumerable hyperechoic foci throughout the liver suspicious for metastatic disease. MRI abdomen with and without contrast was obtained on 09/02/2021. This shows enlarged liver with diffuse heterogeneous signal change throughout the liver. A 3 cm sized anterior hepatic dome lesion was noted. CT-guided biopsy was recommended and was performed on 09/06/2021. This showed metastatic breast adenocarcinoma, ER 50 to 60%, SD 1 to 10%, HER2 3+. Labs throughout hospital stay remained stable with bilirubin of 1, AST 382, alk phos 517 ALT 226 on 09/03/2021. She plan to transfer care to our office and had an appointment upcoming with me soon. She has now been admitted with abdominal pain. Lab tests have shown fulminant hepatic failure with hyperbilirubinemia of 15.8. She has had significant decline in clinical status since then. She states she did not see medical oncology during her recent hospitalization at [facility]. Medical oncology recommendations have been requested for further evaluation and management. Past Medical History Cardiovascular: HTN Heme/Onc: Cancer (Breast) Past Surgical History Past Surgical History: Cholecystectomy, Hysterectomy Family History Family History: No Significant Social History No ALCOHOL: rare Drugs: None Current Problem List Problem List Problems Medical Problems: (1) Breast cancer Status: Acute (2) Hepatic encephalopathy Status: Acute (3) Polycythemia Status: Acute (4) Renal insufficiency Status: Acute (5) Transaminitis Status: Acute Current Medications Current Medications Current Medications Ondansetron HCl (Zofran) 4 mg 1X ONCE IVP Last administered on 09/12/21at 12:10; Start 09/12/21 at 11:15; Stop 09/12/21 at 11:16; Status DC Morphine Sulfate (Morphine Sulfate) 4 mg 1X ONCE IVP Last administered on 09/12/21at 12:12; Start 09/12/21 at 11:15; Stop 09/12/21 at 11:16; Status DC Ondansetron HCl (Zofran) 4 mg PRN Q8HRS PRN IVP NAUSEA/VOMITING; Start 09/12/21 at 13:15; Stop 09/12/21 at 13:19; Status DC Morphine Sulfate (Morphine Sulfate) 4 mg PRN Q2HR PRN IVP PAIN; Start 09/12/21 at 13:15; Stop 09/12/21 at 13:19; Status DC Lactulose (Lactulose) 20 gm PRN DAILY PRN PO CONSTIPATION; Start 09/12/21 at 13:15; Stop 09/12/21 at 13:19; Status DC Lactulose (Lactulose) 20 gm BID PO Last administered on 09/14/21at 08:54; Start 09/12/21 at 13:30 Ondansetron HCl (Zofran) 4 mg PRN Q4HRS PRN IVP NAUSEA/VOMITING Last administered on 09/14/21at 08:57; Start 09/12/21 at 13:30 Fentanyl Citrate (Fentanyl 2ml Vial) 25 mcg PRN Q3HRS PRN IVP SEVERE PAIN 7-10 (1st Choice) Last administered on 09/14/21at 00:46; Start 09/12/21 at 13:30 Sodium Chloride 1,000 ml @ 1,000 mls/hr 1X ONCE IV Last administered on 09/12/21at 13:37; Start 09/12/21 at 13:30; Stop 09/12/21 at 14:29; Status DC Pantoprazole Sodium (Protonix) 40 mg DAILYAC PO Last administered on 09/14/21at 06:26; Start 09/12/21 at 16:00 Hydromorphone HCl (Dilaudid) 1 mg PRN Q4HRS PRN PO PAIN Last administered on 09/13/21at 05:00; Start 09/12/21 at 16:15; Stop 09/13/21 at 09:06; Status DC Hydromorphone HCl (Dilaudid) 2 mg PRN Q4HRS PRN PO SEVERE PAIN (2nd Choice) Last administered on 09/14/21at 08:57; Start 09/13/21 at 09:15 Ceftriaxone Sodium (Rocephin) 1 gm Q24H IVP Last administered on 09/14/21at 08:54; Start 09/13/21 at 10:00; Stop 09/16/21 at 09:59 Rifaximin (Xifaxan) 550 mg Q12HR PO Last administered on 09/14/21at 08:54; Start 09/13/21 at 10:00 Active Scripts Active Reported Naproxen 500 Mg Tablet.dr 1 Tab PO BID Omeprazole 20 Mg Capsule.dr 1 Cap PO DAILY Calcium 600 + Vit D Caplet (Calcium Carbonate/Vitamin D3) 1 Each Tablet 1 Tab PO BID 30 Days Ambien (Zolpidem Tartrate) 5 Mg Tablet 5 Mg PO HS Gabapentin 600 Mg Tablet 300 Mg PO BID Hydrochlorothiazide Tablet (Hydrochlorothiazide) 50 Mg Tablet 25 Mg PO DAILY Atenolol 50 Mg Tablet 1 Tab PO BID Allergies Allergies: Coded Allergies: Penicillins (Verified Allergy, Intermediate, 09/12/21) ROS Review of System Negative unless stated otherwise in HPI Physical Exam General: Alert, Oriented X3 HEENT: Atraumatic Lungs: Clear to auscultation Heart: Regular rate, Normal S1 Abdomen: Normal bowel sounds Extremities: No cyanosis Skin: No breakdown Neuro: Normal gait MUSCULOSKELETAL: No swelling Vitals VITALS Vital Signs Date Time Temp Pulse Resp B/P (MAP) Pulse Ox O2 Delivery O2 Flow Rate FiO2 09/14/21 11:00 96.7 92 18 137/87 (104) 91 Nasal Cannula 3.0 96.7 Labs Labs Laboratory Tests Test 09/13/21 06:45 White Blood Count 9.9 x10^3/uL (4.0-11.0) Red Blood Count 5.32 x10^6/uL (3.50-5.40) Hemoglobin 16.7 g/dL (12.0-15.5) Hematocrit 50.0 % (36.0-47.0) Mean Corpuscular Volume 94 fL (79-100) Mean Corpuscular Hemoglobin 32 pg (25-35) Mean Corpuscular Hemoglobin Concent 34 g/dL (31-37) Red Cell Distribution Width 16.4 % (11.5-14.5) Platelet Count 210 x10^3/uL (140-400) Sodium Level 136 mmol/L (136-145) Potassium Level 3.6 mmol/L (3.5-5.1) Chloride Level 96 mmol/L (98-107) Carbon Dioxide Level 21 mmol/L (21-32) Anion Gap 19 (6-14) Blood Urea Nitrogen 42 mg/dL (7-20) Creatinine 1.5 mg/dL (0.6-1.0) Estimated GFR (Cockcroft-Gault) 35.3 BUN/Creatinine Ratio 28 (6-20) Glucose Level 77 mg/dL (70-99) Calcium Level 10.5 mg/dL (8.5-10.1) Total Bilirubin 15.8 mg/dL (0.2-1.0) Aspartate Amino Transf (AST/SGOT) 2198 U/L (15-37) Alanine Aminotransferase (ALT/SGPT) 652 U/L (14-59) Alkaline Phosphatase 1605 U/L (46-116) Ammonia 90 mcmol/L (11-34) Total Protein 5.9 g/dL (6.4-8.2) Albumin 2.4 g/dL (3.4-5.0) Albumin/Globulin Ratio 0.7 (1.0-1.7) Assessment/Plan Assessment/Plan Assessment: Metastatic breast cancer, ER positive, HER2 positive Liver metastasis Liver failure with hyperbilirubinemia Failure to thrive Recommendations: -Reviewed results of CT with patient. -Discussed management of advanced ER positive, HER2 positive breast cancer. Given significant hyperbilirubinemia and liver failure, potential risks of HER2 directed systemic therapy in combination chemotherapy likely to be significant -Suspect rapid progression of disease is driven by HER2 positive status and endocrine therapy will likely have limited effect on disease progression. -Plan to review with primary oncologist TOMAS ROCHA MD September 14, 2021 13:47
[2021-09-14 14:47] VITALS: BP 117/74
[2021-09-14 15:08] LABS: BASO # 0.1 x10^3/uL (0.0-0.2); BASO % 1 % (0-3); EOS % 0 % (0-3); HEMATOCRIT 52.8 % (36.0-47.0); HEMOGLOBIN 17.7 g/dL (12.0-15.5); LYMPH # 1.4 x10^3/uL (1.0-4.8); LYMPH % 11 % (24-48); MEAN CORPUSCULAR HEMOGLOBIN 31 pg (25-35); MEAN CORPUSCULAR HGB CONC 34 g/dL (31-37); MEAN CORPUSCULAR VOLUME 94 fL (79-100); MONO # 1.3 x10^3/uL (0.0-1.1); MONO % 10 % (0-9); NEUT # 9.8 x10^3/uL (1.8-7.7); NEUT % 77 % (31-73); PLATELET COUNT 163 x10^3/uL (140-400); RED BLOOD COUNT 5.64 x10^6/uL (3.50-5.40); RED CELL DISTRIBUTION WIDTH 17.3 % (11.5-14.5); WHITE BLOOD COUNT 12.7 x10^3/uL (4.0-11.0)
[2021-09-14 15:43] LABS: ALBUMIN 2.4 g/dL (3.4-5.0); ALBUMIN/GLOBULIN RATIO 0.7 (1.0-1.7); CREATININE 1.1 mg/dL (0.6-1.0); GFR 50.5; POTASSIUM 3.5 mmol/L (3.5-5.1); TOTAL BILIRUBIN 21.1 mg/dL (0.2-1.0); TOTAL PROTEIN 5.8 g/dL (6.4-8.2)
--- NOTE | 2021-09-14 15:53 | PDOC ---
G I PROGRESS NOTE Subjective OK, all things considered. Physical Exam Jaundiced. Lungs clear anteriorly. RRR Abdomen soft. Review of Relevant I have reviewed the following items davin (where applicable) has been applied. Labs Laboratory Tests Test 09/13/21 06:45 09/14/21 14:58 White Blood Count 9.9 x10^3/uL (4.0-11.0) 12.7 x10^3/uL (4.0-11.0) Red Blood Count 5.32 x10^6/uL (3.50-5.40) 5.64 x10^6/uL (3.50-5.40) Hemoglobin 16.7 g/dL (12.0-15.5) 17.7 g/dL (12.0-15.5) Hematocrit 50.0 % (36.0-47.0) 52.8 % (36.0-47.0) Mean Corpuscular Volume 94 fL (79-100) 94 fL (79-100) Mean Corpuscular Hemoglobin 32 pg (25-35) 31 pg (25-35) Mean Corpuscular Hemoglobin Concent 34 g/dL (31-37) 34 g/dL (31-37) Red Cell Distribution Width 16.4 % (11.5-14.5) 17.3 % (11.5-14.5) Platelet Count 210 x10^3/uL (140-400) 163 x10^3/uL (140-400) Sodium Level 136 mmol/L (136-145) Potassium Level 3.6 mmol/L (3.5-5.1) Chloride Level 96 mmol/L (98-107) Carbon Dioxide Level 21 mmol/L (21-32) Anion Gap 19 (6-14) Blood Urea Nitrogen 42 mg/dL (7-20) Creatinine 1.5 mg/dL (0.6-1.0) Estimated GFR (Cockcroft-Gault) 35.3 BUN/Creatinine Ratio 28 (6-20) Glucose Level 77 mg/dL (70-99) Calcium Level 10.5 mg/dL (8.5-10.1) Total Bilirubin 15.8 mg/dL (0.2-1.0) Aspartate Amino Transf (AST/SGOT) 2198 U/L (15-37) Alanine Aminotransferase (ALT/SGPT) 652 U/L (14-59) Alkaline Phosphatase 1605 U/L (46-116) Ammonia 90 mcmol/L (11-34) Total Protein 5.9 g/dL (6.4-8.2) Albumin 2.4 g/dL (3.4-5.0) Albumin/Globulin Ratio 0.7 (1.0-1.7) Neutrophils (%) (Auto) 77 % (31-73) Lymphocytes (%) (Auto) 11 % (24-48) Monocytes (%) (Auto) 10 % (0-9) Eosinophils (%) (Auto) 0 % (0-3) Basophils (%) (Auto) 1 % (0-3) Neutrophils # (Auto) 9.8 x10^3/uL (1.8-7.7) Lymphocytes # (Auto) 1.4 x10^3/uL (1.0-4.8) Monocytes # (Auto) 1.3 x10^3/uL (0.0-1.1) Eosinophils # (Auto) 0.0 x10^3/uL (0.0-0.7) Basophils # (Auto) 0.1 x10^3/uL (0.0-0.2) Laboratory Tests Test 09/14/21 14:58 White Blood Count 12.7 x10^3/uL (4.0-11.0) Red Blood Count 5.64 x10^6/uL (3.50-5.40) Hemoglobin 17.7 g/dL (12.0-15.5) Hematocrit 52.8 % (36.0-47.0) Mean Corpuscular Volume 94 fL (79-100) Mean Corpuscular Hemoglobin 31 pg (25-35) Mean Corpuscular Hemoglobin Concent 34 g/dL (31-37) Red Cell Distribution Width 17.3 % (11.5-14.5) Platelet Count 163 x10^3/uL (140-400) Neutrophils (%) (Auto) 77 % (31-73) Lymphocytes (%) (Auto) 11 % (24-48) Monocytes (%) (Auto) 10 % (0-9) Eosinophils (%) (Auto) 0 % (0-3) Basophils (%) (Auto) 1 % (0-3) Neutrophils # (Auto) 9.8 x10^3/uL (1.8-7.7) Lymphocytes # (Auto) 1.4 x10^3/uL (1.0-4.8) Monocytes # (Auto) 1.3 x10^3/uL (0.0-1.1) Eosinophils # (Auto) 0.0 x10^3/uL (0.0-0.7) Basophils # (Auto) 0.1 x10^3/uL (0.0-0.2) Microbiology 09/12/21 Urine Culture - Final, Complete Beta Strep Group B Vitals/I & O Vital Sign - Last 24 Hours 09/13/21 09/13/21 09/13/21 09/13/21 19:00 20:00 21:33 22:03 Temp 97.8 97.8 Pulse 89 Resp 18 22 B/P (MAP) 144/69 (94) Pulse Ox 95 96 O2 Delivery Nasal Cannula Nasal Cannula Nasal Cannula Nasal Cannula O2 Flow Rate 3.0 3.0 3.0 09/13/21 09/14/21 09/14/21 09/14/21 22:47 00:46 01:16 02:39 Temp 97.7 97.7 97.7 97.7 Pulse 80 88 Resp 18 20 18 B/P (MAP) 142/64 (90) 140/87 (104) Pulse Ox 96 93 O2 Delivery Nasal Cannula Nasal Cannula Nasal Cannula O2 Flow Rate 3.0 3.0 09/14/21 09/14/21 09/14/21 09/14/21 07:00 08:00 08:57 11:00 Temp 97.9 96.7 97.9 96.7 Pulse 93 92 Resp 18 18 B/P (MAP) 144/91 (108) 137/87 (104) Pulse Ox 95 96 91 O2 Delivery Nasal Cannula Nasal Cannula Nasal Cannula Nasal Cannula O2 Flow Rate 3.0 3.0 3.0 3.0 09/14/21 14:47 Temp 97.7 97.7 Pulse 99 Resp 18 B/P (MAP) 117/74 (88) Pulse Ox 90 O2 Delivery Nasal Cannula O2 Flow Rate 3.0 Intake and Output 09/13/21 09/13/21 09/14/21 15:00 23:00 07:00 Output Total 800 ml 120 ml Balance -800 ml -[address] not seeing the diffuse metastatic disease noted at [place]. No mention of any signs of portal HTN or obstructive biliary issue. Problem List Problems Medical Problems: (1) Breast cancer Status: Acute (2) Hepatic encephalopathy Status: Acute (3) Polycythemia Status: Acute (4) Renal insufficiency Status: Acute (5) Transaminitis Status: Acute Assessment Per [place] records, diffusely metastatic breast cancer to liver--not discrete mass, so not seen on CT. Suspect jaundice and abnormal LFT's due to this, but not obstructive issue biliary-sarah. More infiltrative disease. Plan of Care Note Continue lactulose and Xifaxan; not clear how effective they'll be given encephalopathy not related to portal hypertension. Off the weekend. Coverage available if needed. Justicifation of Admission Dx: Justifications for Admission: Justification of Admission Dx: Yes HILARIA ALCAZAR MD September 14, 2021 15:53
[2021-09-14] MEDS: ANASTROZOLE 1 MG TABLET PO SCH (15:59)
[2021-09-14 19:00] VITALS: BP 115/81
[2021-09-14 23:00] VITALS: BP 120/82
[2021-09-15 03:00] VITALS: BP 120/85
[2021-09-15 07:00] VITALS: BP 138/88
[2021-09-15] MEDS: HYDROmorphone 2 MG TABLET PO PRN ×4 (07:45→20:19)
[2021-09-15] MEDS: PANTOPRAZOLE 40 MG TABLET.DR. PO SCH (07:45)
[2021-09-15] MEDS: rifAXIMin 550 MG TABLET PO SCH ×2 (07:45→20:15)
[2021-09-15] MEDS: LACTULOSE 20 GM/30 ML SOLUTION. PO SCH ×2 (07:46→20:15)
[2021-09-15] MEDS: ONDANSETRON PF 4 MG/2 ML VIAL. IVP PRN (07:50)
[2021-09-15] MEDS: ONDANSETRON ODT 4 MG TAB.RAPDIS. PO PRN ×3 (08:01→20:15)
[2021-09-15] MEDS: cefTRIAXone IV Push 1 GM VIAL. IVP SCH (10:00)
[2021-09-15 11:00] VITALS: BP 117/75
[2021-09-15] MEDS ORDERED: CEFDINIR 300 MG CAPSULE PO ONE (11:15)
--- NOTE | 2021-09-15 11:28 | PDOC ---
[employer] PROGRESS NOTE Date of Service DOS: DATE: 09/15/21 TIME: 11:26 Chief Complaint Chief Complaint Acute encephalopathy - likely hepatic, though possibility of brain mets with breast ca is possible. Lactulose if she can tolerate Jaundice - with hyperbilirubinemia - will consult GI for further recommendations Acute transaminitis - likely infiltrative with metastatic diagnosis Hyperammonemia - will treat with lactulose as above Intractable abdominal pain - fentanyl prn, po dilaudid Nausea and vomiting - zofran prn H/o breast cancer, recent workup/diagnosis of metastatic disease to liver - request records from [place] [facility] - PPI History of Present Illness History of Present Illness 09/13: Patient reports some dysuria and shortness of breath this morning. Also notes word finding difficulty and difficulty with grasping objects. Urine cultures and sensitivities pending. Will add Rocephin. Follow Oncology and GI recommendations. 09/14: Patient admits she still having some confusion today. Also complaining of some shortness of breath on 3 L oxygen. She admits some hot flashes. Consultation placed to oncology. She may be a good candidate for estrogen saloni like tamoxifen but I will defer to oncology in this regard. CT abdomen/pelvis yesterday showed hepatomegaly with nodular liver, and nodular focus within the right breast. Continue lactulose and rifaximin. Rocephin for UTI. 09/15 Patient evaluated examined at bedside. Discussed with family at bedside as well. Started Anastrazole overnight. Continue to monitor labs. Is having quite a bit of pain and nausea still will increase Dilaudid frequency today. Pretty confused. Overall pretty poor prognosis. Discussed with bedside RN; recheck AM labs tomorrow. Vitals/I&O Vitals/I&O: Vital Signs Date Time Temp Pulse Resp B/P (MAP) Pulse Ox O2 Delivery O2 Flow Rate FiO2 09/15/21 08:00 Nasal Cannula 3.0 09/15/21 07:00 98.4 105 18 138/88 (105) 92 98.4 I & O 09/14/21 09/14/21 09/15/21 15:00 23:00 07:00 Intake Total 200 ml 240 ml Output Total 120 ml Balance 200 ml 240 ml -120 ml Physical Exam General: Alert, Oriented X3 Heart: Regular rate, Normal S1 Lungs: Other (Decreased breath sounds) Abdomen: Normal bowel sounds Extremities: No cyanosis Skin: No breakdown Labs Labs: Laboratory Tests Test 09/14/21 14:58 White Blood Count 12.7 x10^3/uL (4.0-11.0) Red Blood Count 5.64 x10^6/uL (3.50-5.40) Hemoglobin 17.7 g/dL (12.0-15.5) Hematocrit 52.8 % (36.0-47.0) Mean Corpuscular Volume 94 fL (79-100) Mean Corpuscular Hemoglobin 31 pg (25-35) Mean Corpuscular Hemoglobin Concent 34 g/dL (31-37) Red Cell Distribution Width 17.3 % (11.5-14.5) Platelet Count 163 x10^3/uL (140-400) Neutrophils (%) (Auto) 77 % (31-73) Lymphocytes (%) (Auto) 11 % (24-48) Monocytes (%) (Auto) 10 % (0-9) Eosinophils (%) (Auto) 0 % (0-3) Basophils (%) (Auto) 1 % (0-3) Neutrophils # (Auto) 9.8 x10^3/uL (1.8-7.7) Lymphocytes # (Auto) 1.4 x10^3/uL (1.0-4.8) Monocytes # (Auto) 1.3 x10^3/uL (0.0-1.1) Eosinophils # (Auto) 0.0 x10^3/uL (0.0-0.7) Basophils # (Auto) 0.1 x10^3/uL (0.0-0.2) Sodium Level 132 mmol/L (136-145) Potassium Level 3.5 mmol/L (3.5-5.1) Chloride Level 95 mmol/L (98-107) Carbon Dioxide Level 21 mmol/L (21-32) Anion Gap 16 (6-14) Blood Urea Nitrogen 35 mg/dL (7-20) Creatinine 1.1 mg/dL (0.6-1.0) Estimated GFR (Cockcroft-Gault) 50.5 BUN/Creatinine Ratio 32 (6-20) Glucose Level 99 mg/dL (70-99) Calcium Level 11.0 mg/dL (8.5-10.1) Total Bilirubin 21.1 mg/dL (0.2-1.0) Aspartate Amino Transf (AST/SGOT) 1751 U/L (15-37) Alanine Aminotransferase (ALT/SGPT) 705 U/L (14-59) Alkaline Phosphatase 1807 U/L (46-116) Total Protein 5.8 g/dL (6.4-8.2) Albumin 2.4 g/dL (3.4-5.0) Albumin/Globulin Ratio 0.7 (1.0-1.7) Assessment and Plan Assessmemt and Plan Problems Medical Problems: (1) Breast cancer Status: Acute (2) Hepatic encephalopathy Status: Acute (3) Polycythemia Status: Acute (4) Renal insufficiency Status: Acute (5) Transaminitis Status: Acute Comment Review of Relevant I have reviewed the following items davin (where applicable) has been applied. Medications: Current Medications Medications (Trade) Dose Ordered Sig/Kassidy Route PRN Reason Start Time Stop Time Status Last Admin Dose Admin Anastrozole (Arimidex) 1 mg DAILY PO 09/14/21 15:00 09/14/21 15:59 Ondansetron HCl (Zofran Odt) 4 mg PRN Q4HRS PRN PO NAUSEA/VOMITING 09/15/21 08:00 09/15/21 08:01 Justifications for Admission Other Justification DEVIN LICONA MD September 15, 2021 11:28
[2021-09-15] MEDS: ANASTROZOLE 1 MG TABLET PO SCH (12:34)
[2021-09-15 15:00] VITALS: BP 113/73
[2021-09-15 19:51] VITALS: BP 117/75
[2021-09-15 23:35] VITALS: BP 94/46
[2021-09-16 03:31] VITALS: BP 87/33
--- NOTE | 2021-09-16 04:28 | NUR ---
Phoned pt's son, Jose D @ [phone], and spoke with him regarding his mother's decreased LOC, hypotension etc. Asked if he would like to pursue more aggressive care including transfer to the ICU with administration of pressor medications and possible intubation if her respiratory status were to decline. He stated that "she has been through enough" and that he would not like any further measures to be taken at this time. He was currently on his way to the hospital.
--- NOTE | 2021-09-16 05:10 | NUR ---
Called to a rapid response due to no one being able to get a pressure or Sat on the patient. Pt has Breast CA with mets to the liver. She has had a rapid decline, per her son, Jose D. Patient does not know who her son is and thinks he is a friend. She repeats phrases over and over, like "they keep asking me who I am and I just don't know." Only pressure we got was 70/16 with a map of 39, hr 86, and Sat was 88% on NC. Pt is very jaundiced and is weeping fluids from all extremities. Son, Jose D does not want us to do any thing else for her but to make her comfortable. Nurse is to call Dr. Akins for DNR order and comfort care meds. Son is very tearful and is sitting at the bedside. Addendum: 09/16/21 at 0525 by HERMANN ARRIAGA RN Amended: Links added.
[2021-09-16] MEDS ORDERED: LORazepam INTENSOL 2 MG/ML ORAL.CONC SL PRN (05:15)
[2021-09-16] MEDS ORDERED: ATROPINE 1% OPHTH SOLUTION 5ML BOTTLE. SL PRN ×2 (05:15)
[2021-09-16] MEDS ORDERED: oxyCODONE INTENSOL 20 MG/ML ORAL.CONC. SL PRN ×2 (05:15→07:45)
[2021-09-16 07:00] VITALS: BP 66/44
[2021-09-16] MEDS: PANTOPRAZOLE 40 MG TABLET.DR. PO SCH (07:30)
--- NOTE | 2021-09-16 07:30 | NUR ---
Patient restless, pulling at clothing, O2 line etc. Have paged physician regarding positive blood cultures. Family at bedside. O2 sat currently 97%
--- NOTE | 2021-09-16 08:30 | NUR ---
Patient no longer restless, respirations short, mod deep. Pupils dilated, do not respond to light. Have paged Dr Hurt re condition change.
[2021-09-16] MEDS: ANASTROZOLE 1 MG TABLET PO SCH (09:00)
[2021-09-16] MEDS: rifAXIMin 550 MG TABLET PO SCH (09:00)
[2021-09-16] MEDS: LACTULOSE 20 GM/30 ML SOLUTION. PO SCH (09:00)
--- NOTE | 2021-09-16 09:31 | NUR ---
No discernible heartbeat or respirations noted. Dr Akins on unit, went in to room to assess patient and speak with family, who is at bedside.
--- NOTE | 2021-09-16 09:45 | PDOC3 ---
Discharge Summary Visit Information Date of Admission: September 12, 2021 Date of Discharge: September 16, 2021 Admitting Diagnosis: Acute encephalopathy Final Diagnosis Problems Medical Problems: (1) Breast cancer Status: Acute (2) Hepatic encephalopathy Status: Acute (3) Polycythemia Status: Acute (4) Renal insufficiency Status: Acute (5) Transaminitis Status: Acute Brief Hospital Course Allergies Allergies Coded Allergies Type Severity Reaction Last Updated Verified Penicillins Allergy Intermediate 09/12/21 Yes Vital Signs Vital Signs Date Time Temp Pulse Resp B/P (MAP) Pulse Ox O2 Delivery O2 Flow Rate FiO2 09/16/21 07:00 75 24 66/44 (51) 97 Nasal Cannula 3.0 09/16/21 03:31 97.4 97.4 Lab Results Laboratory Tests Test 09/14/21 14:58 White Blood Count 12.7 x10^3/uL (4.0-11.0) Red Blood Count 5.64 x10^6/uL (3.50-5.40) Hemoglobin 17.7 g/dL (12.0-15.5) Hematocrit 52.8 % (36.0-47.0) Mean Corpuscular Volume 94 fL (79-100) Mean Corpuscular Hemoglobin 31 pg (25-35) Mean Corpuscular Hemoglobin Concent 34 g/dL (31-37) Red Cell Distribution Width 17.3 % (11.5-14.5) Platelet Count 163 x10^3/uL (140-400) Neutrophils (%) (Auto) 77 % (31-73) Lymphocytes (%) (Auto) 11 % (24-48) Monocytes (%) (Auto) 10 % (0-9) Eosinophils (%) (Auto) 0 % (0-3) Basophils (%) (Auto) 1 % (0-3) Neutrophils # (Auto) 9.8 x10^3/uL (1.8-7.7) Lymphocytes # (Auto) 1.4 x10^3/uL (1.0-4.8) Monocytes # (Auto) 1.3 x10^3/uL (0.0-1.1) Eosinophils # (Auto) 0.0 x10^3/uL (0.0-0.7) Basophils # (Auto) 0.1 x10^3/uL (0.0-0.2) Sodium Level 132 mmol/L (136-145) Potassium Level 3.5 mmol/L (3.5-5.1) Chloride Level 95 mmol/L (98-107) Carbon Dioxide Level 21 mmol/L (21-32) Anion Gap 16 (6-14) Blood Urea Nitrogen 35 mg/dL (7-20) Creatinine 1.1 mg/dL (0.6-1.0) Estimated GFR (Cockcroft-Gault) 50.5 BUN/Creatinine Ratio 32 (6-20) Glucose Level 99 mg/dL (70-99) Calcium Level 11.0 mg/dL (8.5-10.1) Total Bilirubin 21.1 mg/dL (0.2-1.0) Aspartate Amino Transf (AST/SGOT) 1751 U/L (15-37) Alanine Aminotransferase (ALT/SGPT) 705 U/L (14-59) Alkaline Phosphatase 1807 U/L (46-116) Total Protein 5.8 g/dL (6.4-8.2) Albumin 2.4 g/dL (3.4-5.0) Albumin/Globulin Ratio 0.7 (1.0-1.7) Brief Hospital Course Ms Marcelino is a 61 yo female w/ PMhx GERD, breast cancer x2 who comes to ED accompanied by her son, Jose D, c/o worsening confusion and abdominal pain at home. She has had nausea, confusion, 10/10 abdominal pain that is diffuse. She was recently admitted admitted for 4 days at [facility] for worsening fatigue and abdominal pain, discharged on 09/03/2021 and during that hospital stay son notes she had liver biopsy was positive for metastatic breast cancer. She was discharged home with morphine and sucralfate and Colace and given referral to Dr. Hdz and Dr. Hdz for primary care. Has yet to establish with either. She has moved to [place] and still sees her PCP in [place] until recently. Her son notes left sided breast cancer back in 2011 s/p lumpectomy and radiation with right breast cancer at the end of 2019 s/p mastectomy, radiation, and 12 rounds of chemo therapy, HER2 positive per son, was on herceptin for 12 months per son through [facility], has been off any treatment for 8 months and had follow up 1 month ago per son with Dr. Geronimo, her primary Oncologist. Labs with WBC 10.1, Hb 17.3, platelets 233, NA 136, K3.8, BUN 39, CR 1.6, glucos e 83, calcium 10.8, bilirubin 14.4, AST 2054, ALT 657, alkaline phosphatase 1703, ammonia 76, high-sensitivity troponin is 16, having an 2.7, INR 1.3, PTT 42. CT head and chest radiograph with no acute findings. 09/13: Patient reports some dysuria and shortness of breath this morning. Also notes word finding difficulty and difficulty with grasping objects. Urine cultures and sensitivities pending. Will add Rocephin. Follow Oncology and GI recommendations. 09/14: Patient admits she still having some confusion today. Also complaining of some shortness of breath on 3 L oxygen. She admits some hot flashes. Consultation placed to oncology. She may be a good candidate for estrogen saloni like tamoxifen but I will defer to oncology in this regard. CT abdomen/ pelvis yesterday showed hepatomegaly with nodular liver, and nodular focus within the right breast. Continue lactulose and rifaximin. Rocephin for UTI. 09/15: Patient evaluated examined at bedside. Discussed with family at bedside as well. Started Anastrazole overnight. Continue to monitor labs. Is having quite a bit of pain and nausea still will increase Dilaudid frequency today. Pretty confused. Overall pretty poor prognosis. Discussed with bedside RN; recheck AM labs tomorrow. 09/16/2021: Worsening decline in mental status overnight and increased respiratory distress. Son was called in by overnight nursing staff for wor sening status and he and his aunt who is the patient's sister made a decision to discontinue aggressive care given the overall poor prognosis with HER2/yosef and endocrine positive breast cancer to liver with liver failure disease will continue to progress. They requested comfort care and hospice evaluation. At 01 18 patient was noted to be gasping to stop breathing. On physical examination patient noted with no spontaneous respirations or cardiac activity for time of 930 on 09/16/2021 HEENT: Jaundiced NECK: Supple LUNGS: No respiratory activity HEART: No cardiac activity ABDOMEN: No bowel sounds EXTREMITIES: Jaundiced, swollen, weeping Metastatic breast cancer -HER2/yosef estrogen and progesterone positive with metastases to the liver ultimately cause of was fulminant hepatic failure due to metastatic disease. Acute encephalopathy Hypoxic respiratory failure Jaundice - with hyperbilirubinemia Acute transaminitis Hyperammonemia Intractable abdominal pain GERD - PPI Greater than 30 minutes spent on day of patient Discharge Information Disposition/Orders: Scheduled Atenolol (Atenolol) 50 Mg Tablet, 1 TAB PO BID for htn, #30 Ref 5 (Reported) Entered as Reported by: Nicole Green on 09/12/212216 Last Action: New Order on 09/12/212216 by Nicole Green Calcium Carbonate/Vitamin D3 (Calcium 600 + Vit D Caplet) 1 Each Tablet, 1 TAB P O BID for supplement for 30 Days, #60 Ref 0 (Reported) Entered as Reported by: Nicole Green on 09/12/212216 Last Action: New Order on 09/12/212216 by Nicole Green Gabapentin (Gabapentin) 600 Mg Tablet, 300 MG PO BID for NEUROGENIC PAIN, (Reported) Entered as Reported by: Nicole Green on 09/12/212216 Last Action: New Order on 09/12/212216 by Nicole Green Hydrochlorothiazide (Hydrochlorothiazide Tablet) 50 Mg Tablet, 25 MG PO DAILY for DIURETIC, Ref 0 (Reported) Entered as Reported by: Nicole Green on 09/12/212216 Last Action: New Order on 09/12/212216 by Nicole Green Naproxen (Naproxen) 500 Mg Tablet.dr, 1 TAB PO BID for pain, #60 Ref 2 (Reported) Entered as Reported by: Nicole Green on 09/12/212216 Last Action: New Order on 09/12/212216 by Nicole Green Omeprazole (Omeprazole) 20 Mg Capsule.dr, 1 CAP PO DAILY for gerd, #30 Ref 5 (Reported) Entered as Reported by: Nicole Green on 09/12/212216 Last Action: New Order on 09/12/212216 by Nicole Green Zolpidem Tartrate (Ambien) 5 Mg Tablet, 5 MG PO HS for insomnia, Ref 0 (Reported) Entered as Reported by: Nicole Green on 09/12/212216 Last Action: New Order on 09/12/212216 by Nicole Green Justicifation of Admission Dx: Justifications for Admission: Justification of Admission Dx: Yes DEVIN ROBLES MD September 16, 2021 09:45
--- NOTE | 2021-09-16 13:15 | NUR ---
Family has left, son will call supervisor personnel clerks when decision for home is made, Family took all of patient's belongings home.
== END 2021-09-16 09:31 | DRG 441 ==
LOC: ER 10:09 → 5 NORTH 13:00
PROVIDERS: ADMIT Internal Medicine; ATTEND Internal Medicine
DX: K72.90 Hepatic failure, unspecified without coma (principal); J96.91 Respiratory failure, unspecified with hypoxia; G93.49 Other encephalopathy; C78.7 Secondary malignant neoplasm of liver and intrahepatic bile duct; G93.1 Anoxic brain damage, not elsewhere classified; J98.11 Atelectasis; N39.0 Urinary tract infection, site not specified; R74.01 Elevation of levels of liver transaminase levels; C50.919 Malignant neoplasm of unspecified site of unspecified female breast; Z85.3 Personal history of malignant neoplasm of breast; C50.911 Malignant neoplasm of unspecified site of right female breast; D75.1 Secondary polycythemia; E11.9 Type 2 diabetes mellitus without complications; E83.52 Hypercalcemia; G47.00 Insomnia, unspecified; I10 Essential (primary) hypertension; K21.00 Gastro-esophageal reflux disease with esophagitis, without bleeding; K44.9 Diaphragmatic hernia without obstruction or gangrene; N28.9 Disorder of kidney and ureter, unspecified; N95.1 Menopausal and female climacteric states; R13.10 Dysphagia, unspecified; R62.7 Adult failure to thrive; Z17.0 Estrogen receptor positive status [ER+]; Z79.899 Other long term (current) drug therapy; Z80.3 Family history of malignant neoplasm of breast; Z90.49 Acquired absence of other specified parts of digestive tract; Z90.711 Acquired absence of uterus with remaining cervical stump; Z92.3 Personal history of irradiation; Z88.0 Allergy status to penicillin
CPT/HCPCS: 36415; 70450; 71045; 74176; 80053; 81001; 82140; 83880; 84484; 85007; 85025; 85027; 85610; 85730; 87040; 87077; 87086; 87147; 87186; 93005; 96361; 96374; 96375; J0696; J2270; J2405; J3010; J7030; 99285-25; G0378